=== PATIENT | female | born 1980 | race Caucasian/White ===

== ENCOUNTER 2017-05-20 10:55 | Emergency (ER) | payer OTHER ==
[2017-05-20 11:02] VITALS: TEMP 98.3
--- NOTE | 2017-05-20 12:04 | C.PDOC ---
History Of Present Illness 37 y/o F c no PMHx p/w dizziness since this morning. Describes dizziness as room spinning, occurs with head turning to the R, not when staying still. She also reports a pain in her L shoulder shoulder that began 3 months ago and is now radiating up the L sided neck. She denies trauma, injury, facial droop, vision change, pulsatile mass, nausea, vomiting, numbness, weakness. She states the vertigo stopped about 1 hour prior to my evaluation of her. Time Seen by Provider: 05/20/17 11:44 Chief Complaint (Nursing): Dizziness/Lightheaded Past Medical History Vital Signs: Last Vital Signs Temp 98.3 F 05/20/17 11:00 Pulse 108 H 05/20/17 11:00 Resp 17 05/20/17 11:00 BP 143/95 H 05/20/17 11:00 Pulse Ox 100 05/20/17 12:04 Family History: States: No Known Family Hx - Social History Hx Alcohol Use: No Hx Substance Use: No - Immunization History Hx Tetanus Toxoid Vaccination: No Hx Influenza Vaccination: No Hx Pneumococcal Vaccination: No Review Of Systems Except As Marked, All Systems Reviewed And Found Negative. Constitutional: Negative for: Fever Cardiovascular: Negative for: Chest Pain Physical Exam - Physical Exam Additional Physical Exam Comments: Constitutional: No acute distress. Head: Normocephalic. Atraumatic. Eyes: PERRL. No nystagmus. ENT: Moist mucous membranes. TMs normal b/l. Neck: Supple. No bruit. Cardiovascular: Regular rate. Radial pulse 2+ bilaterally. Chest: No tenderness. Respiratory: Clear to auscultation bilaterally. GI: Soft. Nontender. Nondistended. Back: No CVA tenderness. Musculoskeletal: No tenderness or swelling of extremities. FROM of L shoulder. Skin: No rash. ED Course And Treatment O2 Sat by Pulse Oximetry: 100 Medical Decision Making Medical Decision Making: EKG Sinus rhythm, 93 bpm, no ST/T wave changes. Patient in no distress, normal exam, symptoms typical of BPPV. Meclizine administered and prescribed, f/u ENT, return to ER for facial droop, numbness, weakness, vision change, slurred speech, or any other problem. Disposition - Disposition Referrals: Elder Underwood MD [Staff Provider] - Disposition: HOME/ ROUTINE Disposition Time: 12:04 Condition: STABLE Prescriptions: Meclizine [Antivert] 25 mg PO TID PRN #20 tab PRN Reason: Dizziness Instructions: Benign Paroxysmal Positional Vertigo (ED) - Clinical Impression Clinical Impression: BPPV (benign paroxysmal positional vertigo)
[2017-05-20 12:16] VITALS: BP 147/87; PULSE 78; RESP 19; O2SAT 97
== END 2017-05-20 12:17 | disposition home or self-care (01) ==
LOC: C.ER 10:55
DX: H81.10 Benign paroxysmal vertigo, unspecified ear (principal)

== ENCOUNTER 2017-12-26 11:27 | Emergency (ER) | payer OTHER ==
[2017-12-26 11:50] VITALS: BMI 29.0
[2017-12-26 11:54] VITALS: TEMP 99.1
[2017-12-26] MEDS ORDERED: Naproxen 550 mg Tab PO STA (13:04)
[2017-12-26] MEDS ORDERED: Naproxen 550 mg Tab PO ONE (13:24)
--- NOTE | 2017-12-26 13:24 | RAD ---
PROCEDURE: Radiographs of the Left Shoulder HISTORY: Left shoulder pain following fall COMPARISON: No prior. FINDINGS: BONES: No evidence of displaced fracture nor. The osseous structures appear intact. Apparent artifact (probably clothing artifact) which overlies subcutaneous tissues immediately cephalad to the left AC joint JOINTS: Normal. Glenohumeral and acromioclavicular joints preserved. No osteoarthritis. SOFT TISSUES: Normal. OTHER FINDINGS: None. IMPRESSION: No evidence fracture nor dislocation.
--- NOTE | 2017-12-26 13:27 | C.PDOC ---
History Of Present Illness 37 y/o female presents to the ER complaining of left shoulder pain which has been present since she tripped and extended her arms to brace her fall 3 days ago. Patient states that the pain is worse with movement. Patient denies having any head injury and other injuries. Time Seen by Provider: 12/26/17 12:24 Chief Complaint (Nursing): Upper Extremity Problem/Injury History Per: Patient History/Exam Limitations: no limitations Onset/Duration Of Symptoms: Days Current Symptoms Are (Timing): Still Present Severity: Moderate Past Medical History Reviewed: Historical Data, Nursing Documentation, Vital Signs Vital Signs: Last Vital Signs Temp 99.1 F 12/26/17 11:49 Pulse 88 12/26/17 14:16 Resp 18 12/26/17 14:16 BP 145/92 H 12/26/17 14:16 Pulse Ox 99 12/26/17 17:18 - Medical History PMH: No Chronic Diseases Surgical History: No Surg Hx Family History: States: No Known Family Hx - Social History Hx Alcohol Use: No Hx Substance Use: No - Immunization History Hx Tetanus Toxoid Vaccination: No Hx Influenza Vaccination: No Hx Pneumococcal Vaccination: No Review Of Systems Except As Marked, All Systems Reviewed And Found Negative. Musculoskeletal: Positive for: Shoulder Pain (left shoulder pain) Neurological: Negative for: Weakness, Numbness, Dizziness Physical Exam - Physical Exam Appears: Non-toxic, No Acute Distress Skin: Normal Color, Warm Head: Atraumatic, Normacephalic Eye(s): bilateral: Normal Inspection, PERRL Nose: Normal Oral Mucosa: Moist Neck: Normal ROM, No Midline Cervical Tenderness, Supple Chest: Symmetrical Cardiovascular: Rhythm Regular Respiratory: Normal Breath Sounds, No Accessory Muscle Use, No Rales, No Rhonchi , No Wheezing Extremity: No Normal ROM (pain with abduction and extension), Tenderness ( tenderness to palpation at left posterior shoulder), No Deformity, Other (no erythema and no warmth in left shoulder) Pulses: Left Radial: Normal, Right Radial: Normal Neurological/Psych: Oriented x3, Normal Speech, Normal Cognition, Normal Motor, Normal Sensation ED Course And Treatment O2 Sat by Pulse Oximetry: 99 (RA) Pulse Ox Interpretation: Normal - Other Rad No standard instances X-Ray: Viewed By Me, Read By Radiologist Interpretation: PROCEDURE: Radiographs of the Left Shoulder. HISTORY: Left shoulder pain following fall. COMPARISON: No prior. FINDINGS: BONES: No evidence of displaced fracture nor. The osseous structures appear intact. Apparent artifact (probably clothing artifact) which overlies subcutaneous tissues immediately cephalad to the left AC joint. JOINTS: Normal. Glenohumeral and acromioclavicular joints preserved. No osteoarthritis. SOFT TISSUES: Normal. OTHER FINDINGS: None. IMPRESSION: No evidence fracture nor dislocation. Progress Note: Patient given Naproxen. X-ray of left shoulder is negative.Patient has been given shoulder sling and discharged. Patient has been told to follow up with orthopedics in 1 week. Disposition Counseled Patient/Family Regarding: Studies Performed, Diagnosis, Need For Followup, Rx Given - Disposition Referrals: Jese Almazan III, MD [Staff Provider] - [facility] [Outside] Disposition: HOME/ ROUTINE Disposition Time: 13:30 Condition: STABLE Additional Instructions: FOLLOW UP WITH ORTHOPEDICS WITHIN 1 WEEK USE MEDICATIONS NEEDED FOR PAIN RETURN TO ER IF SYMPTOMS WORSEN Prescriptions: Naproxen 375 mg PO BID PRN #20 tablet PRN Reason: pain Instructions: Shoulder Sprain (ED) Forms: [employer] (Faroese) Print Language: ALGERIAN - POA Present On Arrival: Falls Or Trauma - Clinical Impression Clinical Impression: Sprain of left shoulder - Scribe Statement The provider has reviewed the documentation as recorded by the Heidi Madsen Provider Attestation: All medical record entries made by the Tomásibmary were at my direction and personally dictated by me. I have reviewed the chart and agree that the record accurately reflects my personal performance of the history, physical exam, medical decision making, and the department course for this patient. I have also personally directed, reviewed, and agree with the discharge instructions and disposition.
[2017-12-26 14:18] VITALS: BP 145/92; PULSE 88; RESP 18
[2017-12-26 17:11] VITALS: O2SAT 99
== END 2017-12-26 14:18 | disposition home or self-care (01) ==
LOC: C.ER 11:27
DX: S43.402A Unspecified sprain of left shoulder joint, initial encounter (principal); W01.0XXA Fall on same level from slipping, tripping and stumbling without subsequent striking against object, initial encounter